=== PATIENT | female | born 1965 | race Caucasian/White ===

== ENCOUNTER 2018-03-11 05:24 | Day surgery (SDC) | payer OTHER ==
[2018-03-11] VITALS (7 sets, daily range): BP systolic 136–169; BP diastolic 77–104; PULSE 64–71; TEMP 96.6–97.6
[~2018-03-11] VITALS: Ht 157.5 cm; Wt 61.9 kg
[2018-03-11] MEDS ORDERED: TOPROL XL 50MG50 MG PO (05:47)
[2018-03-11] MEDS ORDERED: ALLEGRA 180MG180 MG PO (05:48)
== END 2018-03-11 10:30 | disposition home or self-care (01) ==
LOC: SDCO 05:24
DX: N13.0 Hydronephrosis with ureteropelvic junction obstruction (principal); R31.0 Gross hematuria; I10 Essential (primary) hypertension; N60.19 Diffuse cystic mastopathy of unspecified breast; Z80.3 Family history of malignant neoplasm of breast; Z83.3 Family history of diabetes mellitus; Z82.49 Family history of ischemic heart disease and other diseases of the circulatory system
CPT/HCPCS: C1769; C2617; J0690; J1100; J1885; J2250; J2405; J2704; J3010; J7120; Q9967

== ENCOUNTER → 2018-04-01 | Outpatient (CLI) | payer OTHER ==
[~2018-04-01] MED LIST: ALLEGRA 180MG180 MG PO; TOPROL XL 50MG50 MG PO
== END ==
LOC: COL.RAD 11:24
DX: N13.1 Hydronephrosis with ureteral stricture, not elsewhere classified (principal)
CPT/HCPCS: A9562

== ENCOUNTER 2018-04-14 08:18 | Observation (INO) | payer OTHER ==
[~2018-04-14] VITALS: Ht 157.5 cm; Wt 60.6 kg
[2018-04-26] VITALS (10 sets, daily range): BP systolic 115–152; BP diastolic 71–92; PULSE 62–84; TEMP 97.2–98.4
[2018-04-26] MEDS ORDERED: NASACORT OTC NS (13:09)
[2018-04-26] MEDS ORDERED: ALLEGRA 180MG180 MG PO (14:19)
[2018-04-26] MEDS ORDERED: TOPROL XL 50MG50 MG PO (14:19)
[2018-04-27 04:07] VITALS: BP 124/74; PULSE 67; TEMP 98.2
[2018-04-27 08:01] LABS: CREATININE, serum 0.69 mg/dL (0.52-1.25); POTASSIUM 3.4 mmol/L (3.4-5.0)
[2018-04-27 08:05] VITALS: BP 150/81; PULSE 75; TEMP 99.3
[2018-04-27 08:23] VITALS: BP 136/61; PULSE 104; TEMP 99.9
[2018-04-27 11:35] VITALS: BP 132/79; PULSE 71; TEMP 98.4
== END 2018-04-27 15:15 | disposition home or self-care (01) ==
LOC: INPTSU 04-26 08:38 → SURG 04-26 08:38
PROVIDERS: Urology
DX: N30.20 Other chronic cystitis without hematuria (principal); N13.0 Hydronephrosis with ureteropelvic junction obstruction; I10 Essential (primary) hypertension; N60.39 Fibrosclerosis of unspecified breast; Z80.3 Family history of malignant neoplasm of breast; Z83.3 Family history of diabetes mellitus; Z82.49 Family history of ischemic heart disease and other diseases of the circulatory system
CPT/HCPCS: A4314; A9284; C1729; C1769; C2617; G0378; G0379; J0690; J1885; J2370; J2704; J2710; J3010; J7120

== ENCOUNTER → 2018-07-29 | Outpatient (CLI) | payer OTHER ==
[~2018-07-29] MED LIST changes: +NASACORT OTC NS
== END ==
LOC: COL.RAD 09:17
DX: N13.2 Hydronephrosis with renal and ureteral calculous obstruction (principal)

== ENCOUNTER → 2019-01-27 | Outpatient (CLI) | payer OTHER | LOC: COL.RAD 08:15 | DX: N13.0 Hydronephrosis with ureteropelvic junction obstruction (principal) ==